=== PATIENT | female | born 1955 | race American Indian/Alaskan Native ===

== ENCOUNTER 2016-04-25 08:22 | Outpatient (CLI) | payer OTHER ==
--- NOTE | 2016-04-25 10:14 | Ultrasound Report ---
ULTRASOUND ABDOMEN COMPLETE: Technique: Transabdominal ultrasound with color Doppler interrogation. History: Hepatitis C, abnormal liver function tests. Findings: The liver is normal size, contour and echotexture. A 1 cm gallstone is identified within the gallbladder. No wall thickening, surrounding fluid or abnormal dilatation. The CBD measures 6 mm. The visualized portions of the pancreas including the head and proximal body are within normal limits. The kidneys demonstrate no hydronephrosis or mass. Cortical thickness and echogenicity are within normal limits bilaterally. The spleen and aorta are within normal limits. No aneurysmal dilatation is noted. No ascites. The bladder is unremarkable. IMPRESSION: Large solitary gallstone. Unremarkable appearance of the liver.
== END 2016-04-25 08:23 | disposition home or self-care (01) ==
LOC: US 08:22
PROVIDERS: ATTEND Internal Medicine Gastroenterology
DX: Z12.11 Encounter for screening for malignant neoplasm of colon (principal); B19.20 Unspecified viral hepatitis C without hepatic coma; R94.5 Abnormal results of liver function studies; K80.20 Calculus of gallbladder without cholecystitis without obstruction
CPT/HCPCS: 76700

== ENCOUNTER 2016-05-19 08:03 | Outpatient (CLI) | payer OTHER ==
[2016-05-19 08:46] LABS: Blood Urea Nitrogen 11 mg/dL (7-17)
--- NOTE | 2016-05-19 09:32 | Magnetic Resonance Report ---
MRI ABDOMEN WITH AND WITHOUT CONTRAST HISTORY: Hepatitis C, colon cancer, abnormal blood findings. TECHNIQUE: Multiplanar and multisequence MRI of the liver with and without gadolinium is submitted. FINDINGS: Compared to the ultrasound abdomen dated 04/25/16. The liver and spleen are normal size and signal. No enlargement, parenchymal disease or abnormal enhancing mass. A 1.5 cm gallstone is identified within the gallbladder. No biliary dilatation. The CBD measures 5 mm. No intrahepatic biliary dilatation. Signal characteristics of the kidneys, adrenal glands, pancreas, visualized bowel loops and aorta are unremarkable. No evidence for ascites or adenopathy. No suspicious bony lesion. No abnormal enhancement after IV gadolinium is demonstrated. IMPRESSION: 1.5 cm gallstone. Unremarkable appearance of the liver. No evidence for advanced parenchymal disease or mass/metastatic disease. Otherwise, unremarkable exam.
== END 2016-05-19 08:04 | disposition home or self-care (01) ==
LOC: MRI 08:03
PROVIDERS: ATTEND Internal Medicine Gastroenterology
DX: Z12.11 Encounter for screening for malignant neoplasm of colon (principal); B19.20 Unspecified viral hepatitis C without hepatic coma; R79.89 Other specified abnormal findings of blood chemistry; K80.20 Calculus of gallbladder without cholecystitis without obstruction
CPT/HCPCS: 36415; 74183; 82565; 84520; A9577

== ENCOUNTER 2016-06-17 09:42 | Day surgery (SDC) | payer OTHER ==
[~2016-06-17 09:42] MED LIST: VANCOMYCIN/NS 1 GM/250 ML 1 GM/250 ML BAG IV NR
[2016-06-17] MEDS ORDERED: DILAUDID IV PRN (10:14)
[2016-06-17] MEDS ORDERED: ZOFRAN IV PRN (10:14)
[2016-06-17] MEDS ORDERED: NACL BACTERIOSTATIC INFILTRATI ONE (10:32)
--- NOTE | 2016-06-17 10:58 | Anesthesia Day of Surgery ---
Anesthesia Day of Surgery - Day of Surgery Patient Examined: Yes Patient H&P Reviewed: Yes Patient is NPO: Yes
--- NOTE | 2016-06-17 10:58 | Anesthesia Consultation ---
Anesthesia Consult and Med Hx Date of service: 06/17/16 - Airway Anesthetic Teeth Evaluation: Poor, Chipped (front ) ROM Head & Neck: Adequate Mental/Hyoid Distance: Adequate Mallampati Class: Class II Intubation Access Assessment: Probably Good - Pulmonary Exam CTA: Yes - Cardiac Exam Cardiac Exam: RRR - Pre-Operative Health Status ASA Pre-Surgery Classification: ASA2 Proposed Anesthetic Plan: General - Pulmonary Hx Smoking: No Hx Asthma: No Hx Sleep Apnea: No - Cardiovascular System Hx Hypertension: No - Central Nervous System Hx Seizures: Yes (40 yrs ago, not on meds) Hx Psychiatric Problems: No - Endocrine Hx Renal Disease: No Hx Liver Disease: Yes (liver mass?) Hx Non-Insulin Dependent Diabetes: No Hx Thyroid Disease: Yes (not on meds) - Hematic Hx Anemia: Yes (AFTER 30 YRS AGO) - Other Systems Hx Cancer: No Hx Obesity: Yes
[2016-06-17] MEDS ORDERED: PEPCID PO NR (11:00)
[2016-06-17] MEDS ORDERED: NACL 0.9% 1000 ML 1,000 ML IV SCH (11:00)
[2016-06-17] MEDS ORDERED: VERSED IV NR (11:00)
[2016-06-17] MEDS ORDERED: SUBLIMAZE ONE ×2 (12:17→13:35)
[2016-06-17] MEDS ORDERED: DIPRIVAN 10 MG/ML IV ONE (12:17)
[2016-06-17] MEDS ORDERED: XYLOCAINE MPF 2% ONE (12:19)
[2016-06-17] MEDS ORDERED: ZEMURON IV ONE (12:19)
[2016-06-17] MEDS ORDERED: ZOFRAN ONE (12:19)
[2016-06-17] MEDS ORDERED: ROBINUL ONE ×2 (12:20)
[2016-06-17] MEDS ORDERED: NEOSTIGMINE ONE (12:20)
[2016-06-17] MEDS ORDERED: MARCAINE-EPI 0.25%-1:200,000 INFILTRATI ONE ×2 (12:25→13:57)
[2016-06-17] MEDS ORDERED: BREVIBLOC IV ONE ×2 (13:37)
[2016-06-17] MEDS ORDERED: DECADRON ONE (13:40)
[2016-06-17] MEDS ORDERED: TORADOL ONE (13:51)
[2016-06-17] MEDS ORDERED: NACL 0.9% 1000 ML 1,000 ML ONE (13:55)
[2016-06-17] MEDS ORDERED: NACL 0.9% IR ONE (13:57)
--- NOTE | 2016-06-17 14:18 | Operative Report ---
Operative Report Operative Report: Date of procedure: 06/17/2016 Pre-operative diagnosis: Symptomatic cholelithiasis, elevated liver function tests Post-operative diagnosis: Same Procedure name(s): Laparoscopic cholecystectomy Surgeon: Lu Taylor MD Liner Machine Operator: Caro Epps M.D. Anesthesia: General EBL: Minimal Complications: None Instrument Count: correct Indications: This is a 60-year-old female with a history of right upper quadrant abdominal pain and elevated liver function tests. She was offered the above-named procedures possible treatment modality. The risks and benefits of discussed until all questions were answered. She was subsequently brought to the OR. Findings: No significant Procedure: We reviewed the informed consent. We placed the patient supine upon the table. After adequate anesthesia was reached, the patient was prepped and draped in usual sterile fashion. A 5 mm incision was made the level of umbilicus and a Veress needle was placed at this position. The abdomen was then insufflated to 15 mmHg and a 5 mm trocar was placed through the umbilical incision. We inserted the camera at this time. Under direct vision and after infiltration of local anesthetic an 11 mm port was placed in the epigastric location. This was followed by placement of two five mm ports in the right upper quadrant. We identified the gallbladder and the fundus was grasped. This was retracted superiorly. We then grasped the infundibulum and retracted it laterally. At this time we dissected free the cystic duct infundibular junction until the triangle of Calot was clearly identified. We placed 3 clips proximally on the cystic duct, 2 distally. We placed 2 clips proximally on the cystic artery. We transected the cystic duct sharply. We transected the cystic artery using electrocautery. We then dissected the gallbladder free from its fossa using electrocautery. This was placed in Endo Catch bag and removed the abdomen to be sent to pathology for further evaluation. We chose a site in the right upper quadrant and infiltrated this area will local anesthetic. A small incision was made with a #11 blade. Through the incision we placed a percutaneous biopsy needle. Under direct vision we observed the needle enter into the liver. A site was chosen to the right of the gallbladder fossa. The biopsy was obtained and deemed adequate. We assured hemostasis at this time. We then evacuated the insufflation. We removed all ports and closed all port sites using a 4-0 Monocryl in a subcuticular fashion. The wounds were bandaged sterilely. The patient tolerated procedure well. They were taken to PACU in no apparent distress after extubation.
--- NOTE | 2016-06-17 14:22 | Short Stay Summary ---
Short Stay Documentation Date of service: 06/17/16 - History H&P: dictated - Allergies and Medications Current Medications: Allergies Penicillins Allergy (Verified 06/17/16 10:46) Hives,BODY SWELLING pseudoephedrine sulfate [From Claritin-D] Allergy (Verified 06/17/16 10:46) MOUTH SWELLING Sulfa (Sulfonamide Antibiotics) Allergy (Verified 06/17/16 10:46) MOUTH SWELLING loratadine [From Claritin-D] Adverse Reaction (Unverified 04/25/16 08:23) MOUTH SWELLING Home Medications Medication Instructions Recorded Confirmed Last Taken Type guaiFENesin/DEXTROMETHORPHAN 1 each PO BID PRN 06/13/16 06/13/16 Unknown History [Robitussin Plkea-Rtyzp-Ceel Dm] Active Medications Famotidine (Pepcid) 20 mg PO PREOP NR Stop: 06/17/16 23:59 Last Admin: 06/17/16 10:47 Dose: 20 mg Hydromorphone HCl (Dilaudid) 0.5 mg IV Q10MIN PRN PRN Reason: Pain , Severe (7-10) Stop: 06/17/16 18:00 Vancomycin HCl (Vancomycin/Ns 1 Gm/250 Ml) 1 gm in 250 mls @ 167.007 mls/hr IV PREOP NR PRN Reason: Protocol Stop: 06/17/16 23:59 Last Admin: 06/17/16 12:37 Dose: 167.007 mls/hr Sodium Chloride (Nacl 0.9% 1000 Ml) 1,000 mls @ 75 mls/hr IV DIRECT ROMEO Last Admin: 06/17/16 10:50 Dose: 75 mls/hr Midazolam HCl (Versed) 2 mg IV PREOP NR Stop: 06/17/16 23:59 Last Admin: 06/17/16 11:02 Dose: 2 mg Ondansetron HCl (Zofran) 4 mg IV ONCE PRN PRN Reason: Nausea And Vomiting Stop: 06/17/16 18:00 - Brief post op/procedure progress note Date of procedure: 06/17/16 Pre-op diagnosis: symptomatic cholelithiasis, elevated liver function tests Post-op diagnosis: same Procedure: Laparoscopic cholecystectomy, percutaneous liver biopsy Anesthesia: GETA, local Findings: None significant Surgeon: COLEEN WILBURN Fund Raiser: YNES MONTERROSO Estimated blood loss: minimal Pathology: list (gallbladder, liver biopsy) Specimen disposition: to lab Condition: stable - Disposition Condition at discharge: Stable Disposition: DISCHARGED TO HOME OR SELFCARE Short Stay Discharge Plan Activity: no restrictions Diet: low fat Wound: keep clean and dry Follow up with: KIRAN ARAGON MD [Primary Care Provider] - 7 Days COLEEN WILBURN MD [Staff Physician] - 7 Days Prescriptions: oxyCODONE /ACETAMINOPHEN [Percocet 5/325] 1 tab PO Q6HR PRN #30 tablet PRN Reason: Pain
--- NOTE | 2016-06-17 15:07 | Post Anesthesia Evaluation ---
- Post Anesthesia Evaluation Patient Participated: Yes Airway Patent: Yes Stable Respiratory Function: Yes Nausea/Vomiting: No Temp > 96.8F: Yes Pain Manageable: Yes Adequeate Hydration: Yes Anesthesia Complications: No Block Receding Appropriately: Not Applicable Patient on Ventilator: No
[2016-06-17 16:07] VITALS: BP 134/57
== END 2016-06-17 16:03 | disposition home or self-care (01) ==
LOC: OR 09:42
PROVIDERS: ATTEND Surgery
DX: K80.10 Calculus of gallbladder with chronic cholecystitis without obstruction (principal); B18.2 Chronic viral hepatitis C; D64.9 Anemia, unspecified; E66.9 Obesity, unspecified; Z68.32 Body mass index [BMI] 32.0-32.9, adult
CPT/HCPCS: 47000; 47562; 88304; 88307; 88313; J1100; J1885; J2250; J2405; J2704; J2710; J3010; J3370; J7030

== ENCOUNTER 2016-12-02 08:52 | Outpatient (CLI) | payer OTHER ==
--- NOTE | 2016-12-02 10:36 | Mammography Report ---
Bilateral mammogram: No previous studies available. CAD study utilized. Findings: A heterogeneous breast parenchyma bilaterally. 8mm focal dense asymmetry subareolar area left breast. No microcalcification. Normal axilla. Impression: Focal dense asymmetry subareolar area left breast. Comparison with previous studies is recommended. If previous studies are not available spot mag and sonographic examination advised. BI-RADS CATEGORY: 0 = Needs additional imaging evaluation ACR BI-RADS MAMMOGRAPHIC CODES: 0 = Needs additional imaging evaluation; 1 = Negative; 2 = Benign; 3 = Probably benign; 4 = Suspicious; 5 = Malignant; 6 = Known biopsy-proven malignancy COMMENT: 1. Dense breast tissue, i.e., adenosis, fibrocystic changes, etc., may obscure an underlying neoplasm. 2. Approximately 10% of cancers are not detected with mammography. 3. A negative mammography report should not delay biopsy if a clinically suspicious mass is present. COMMENT: Patient follow-up letters are generated in [employer].
== END 2016-12-02 08:53 | disposition home or self-care (01) ==
LOC: MAMMO 08:52
PROVIDERS: ATTEND Internal Medicine
DX: Z12.31 Encounter for screening mammogram for malignant neoplasm of breast (principal)
CPT/HCPCS: 77067; G0202

== ENCOUNTER 2017-01-17 08:22 | Outpatient (CLI) | payer OTHER ==
--- NOTE | 2017-01-17 08:58 | Mammography Report ---
LEFT DIGITAL DIAGNOSTIC MAMMOGRAM : 01/17/17 08:22:00 CLINICAL: Recalled for asymmetry. COMPARISON:12/02/16 screening FINDINGS: ML and spot compression CC views were performed and are negative. IMPRESSION: Negative Mammogram. BI-RADS CATEGORY: 1 -- Negative RECOMMENDATION: Routine mammographic screening in one year. ACR BI-RADS MAMMOGRAPHIC CODES: 0 = Needs additional imaging evaluation; 1 = Negative; 2 = Benign; 3 = Probably benign; 4 = Suspicious; 5 = Malignant; 6 = Known biopsy-proven malignancy COMMENT: 1. Dense breast tissue, i.e., adenosis, fibrocystic changes, etc., may obscure an underlying neoplasm. 2. Approximately 10% of cancers are not detected with mammography. 3. A negative mammography report should not delay biopsy if a clinically suspicious mass is present. COMMENT: Patient follow-up letters are generated via our [employer] digital application.
== END 2017-01-17 08:23 | disposition home or self-care (01) ==
LOC: MAMMO 08:22
PROVIDERS: ATTEND Internal Medicine
DX: R92.2 Inconclusive mammogram (principal)
CPT/HCPCS: G0206-LT